=== PATIENT | male | born 1980 | race Caucasian/White ===

== ENCOUNTER 2018-01-03 19:43 | Emergency (ER) | payer OTHER ==
[~2018-01-03] VITALS: Ht 188 cm; Wt 86.2 kg
[2018-01-03 20:34] VITALS: BP 125/79
[2018-01-03] MEDS ORDERED: IBUPROFEN600 MG ORAL (20:36)
[2018-01-03] MEDS ORDERED: Ketorolac 30mg Inj ONE (20:39)
[2018-01-03] MEDS ORDERED: Ketorolac 60mg Inj IM ONE (20:45)
--- NOTE | 2018-01-06 21:13 | Emergency Room Report ---
History of Present Illness General Chief Complaint: Back Injury Source: Patient Present Illness HPI Patient 37-year-old male presented after increased low back pain. Patient the acute onset of symptoms. Patient reports having the moderate pain. This is worse with movement. Patient prior history of the low back pain in the past. Patient works at a hotel. He reports having prior workers comp injury. He had previous he required injections. Allergies: Coded Allergies: No Known Allergies (Unverified , 01/03/18) Patient History Past Medical History: see triage record Reviewed Nursing Documentation: PMH: Agreed; PSxH: Agreed Nursing Documentation-PMH Past Medical History: No History, Except For Review of Systems All Other Systems: negative except mentioned in HPI Physical Exam Vital Signs Date Time Temp Pulse Resp B/P (MAP) Pulse Ox O2 Delivery O2 Flow Rate FiO2 01/03/18 20:26 98.5 76 16 125/79 Room Air 98.4 01/03/18 20:34 98 General Appearance: well appearing, no apparent distress, alert, GCS 15 Head: normocephalic, atraumatic ENT: hearing grossly normal, normal voice Neck: full range of motion, supple Respiratory: no respiratory distress, speaking full sentences Musculoskeletal: normal inspection, back normal, decreased range of mation Neurologic: normal inspection, alert, oriented x3, responsive, parts puller III-XII nml as tested, motor strength/tone normal, normal gait Psychiatric: normal inspection, mood/affect normal Skin: no rash Medical Decision Making Diagnostic Impression: Primary Impression: Lumbar strain ER Course patient is a for low back pain. Differential diagnosis included but was not limited to herniated disc, cauda equina syndrome, abdominal aortic aneurysm, perforated ulcer, spinal epidural abscess, spinal stenosis, lumbar fracture, metastatic lesion, pyelonephritis. Patient has a benign exam and does not appear to require any further imaging or laboratory testing at this time. The patient presented having a lumbar strain. The patient appears to be neurologically intact. Patient was placed on light duty. He is advised to follow up with workers comp physician for reexamination. Last Vital Signs Date Time Temp Pulse Resp B/P (MAP) Pulse Ox O2 Delivery O2 Flow Rate FiO2 01/03/18 20:50 98.5 76 16 125/79 98 Room Air 209.3 Status: improved Disposition: HOME, SELF-CARE Condition: Stable Scripts Ibuprofen* (MOTRIN*) 600 Mg Tablet 600 MG ORAL Q8H PRN for For Pain, #30 TAB 0 Refills Prov: Cody Pablo MD 01/03/18 Referrals: NON PHYSICIAN (PCP) Patient Instructions: Back Pain, Adult Cody Pablo MD Jan 06, 2018 21:13
== END 2018-01-03 20:46 | disposition home or self-care (01) ==
LOC: EMR 20:46
DX: S39.012A Strain of muscle, fascia and tendon of lower back, initial encounter (principal); X50.9XXA Other and unspecified overexertion or strenuous movements or postures, initial encounter; Y92.59 Other trade areas as the place of occurrence of the external cause; Y99.0 Civilian activity done for income or pay
CPT/HCPCS: 96372; 99283; J1885

== ENCOUNTER 2018-01-08 13:09 | Emergency (ER) | payer OTHER ==
[~2018-01-08] VITALS: Ht 188 cm; Wt 86.2 kg
[~2018-01-08 13:09] MED LIST: IBUPROFEN600 MG ORAL
[2018-01-08 13:11] VITALS: BP 132/76
--- NOTE | 2018-01-08 13:32 | Emergency Room Report ---
History of Present Illness General Chief Complaint: Back Pain-No Injury Source: Patient Present Illness HPI Patient is a 37-year-old male who presents today with complaints of low back pain that began on 01/03/2018. Patient states he is at work lifting heavy luggage when he felt a twinge in his lower back. He states he has chronic back pain and this feels like an exacerbation of his usual back pain. He states pain is currently 5 out of 10 in severity and it is in severity at its worst. He's been taking ibuprofen with relief. He is in today requesting a note for work. Denies any changes in bowel or bladder habits, numbness, tingling, loss of vision or saddle anesthesia. Allergies: Coded Allergies: No Known Allergies (Unverified , 01/03/18) Patient History Reviewed Nursing Documentation: PMH: Agreed; PSxH: Agreed Nursing Documentation-PM Past Medical History: No Stated History History Of Psychiatric Problem: No - hx of alcohol abuse Review of Systems Musculoskeletal: Reports: back pain All Other Systems: negative except mentioned in HPI Physical Exam Vital Signs Date Time Temp Pulse Resp B/P (MAP) Pulse Ox O2 Delivery O2 Flow Rate FiO2 01/08/18 13:11 98.2 84 16 132/76 96 Room Air 98.2 Sp02 EP Interpretation: reviewed, normal General Appearance: no apparent distress, alert, GCS 15, non-toxic Head: normocephalic, atraumatic Eyes: bilateral eye normal inspection, bilateral eye PERRL ENT: hearing grossly normal, normal pharynx, no angioedema, normal voice Neck: full range of motion, supple/symm/no masses Respiratory: chest non-tender, lungs clear, normal breath sounds, speaking full sentences Cardiovascular #1: regular rate, rhythm, no edema Cardiovascular #2: 2+ carotid (R), 2+ carotid (L), 2+ radial (R), 2+ radial (L) , 2+ dorsalis pedis (R), 2+ dorsalis pedis (L) Gastrointestinal: normal bowel sounds, non tender, soft, non-distended, no guarding, no rebound Rectal: deferred Genitourinary: normal inspection, no CVA tenderness Musculoskeletal: gait/station normal, normal range of motion, non-tender, calf tenderness, other - no midline tenderness, tenderness palpation over the paraspinous muscles on the left lower back Neurologic: alert, oriented x3, responsive, motor strength/tone normal, sensory intact, speech normal, other - 5 out of 5 strength in bilateral lower extremities, positive straight leg raise on the left, pulses are present and equal bilaterally, neurovascularly intact Psychiatric: judgement/insight normal, memory normal, mood/affect normal, no suicidal/homicidal ideation Reflexes: 3+ bicep (R), 3+ bicep (L), 3+ tricep (R), 3+ tricep (L), 3+ knee (R) , 3+ knee (L) Skin: normal color, no rash, warm/dry, well hydrated Lymphatic: no adenopathy Medical Decision Making PA Attestation Supervising physician is Dr. Estrada Diagnostic Impression: Primary Impression: Lumbago ER Course Findings consistent with lumbago. Imaging is considered benign indicated at this time as patient has no tenderness to palpation of the bony processes and no injuries. Patient refused medication as he states he is a recovering alcoholic and wants to continue with ibuprofen. No evidence of cauda equina, neuro examination is normal. Patient is given return precautions and instructed to follow up with PCP for reevaluation. Patient is transplanted and is agreeable. Last Vital Signs Date Time Temp Pulse Resp B/P (MAP) Pulse Ox O2 Delivery O2 Flow Rate FiO2 01/08/18 13:11 98.4 84 16 132/76 96 Room Air 98.4 Status: improved Disposition: HOME, SELF-CARE Condition: Stable Departure Forms: Return to Work Return to Work in (Days): 2 Work Restrictions: No Heavy Lifting Patient Instructions: Back Pain, Adult Linsey Vega Jan 08, 2018 13:31
[2018-01-08 13:37] VITALS: BP 132/76
== END 2018-01-08 13:37 | disposition home or self-care (01) ==
LOC: EMR 13:20
DX: M54.5 Low back pain (principal)
CPT/HCPCS: 99282

== ENCOUNTER 2018-01-20 13:25 | Emergency (ER) | payer OTHER ==
[~2018-01-20] VITALS: Ht 188 cm; Wt 81.6 kg
[2018-01-20] MEDS ORDERED: NKM (14:24)
[2018-01-20 14:28] VITALS: BP 130/81
--- NOTE | 2018-01-20 15:08 | Emergency Room Report ---
History of Present Illness General Chief Complaint: Back Pain-No Injury Source: Patient Present Illness HPI Mr. Wright is a very pleasant 37-year-old male with history of lumbar degenerative disc disease status post surgery in 2010. Due to the pain is recently received epidural injection 6 months ago arranged by his PCP at [facility]. 2 weeks ago he was evaluated in our ER for back injury. He injured his back while lifting heavy luggage. His [facility] PCP prescribed prednisone one a week and a half ago case prednisone. Uses ibuprofen for the pain. He is able to deal with the pain. He has constant lower achy back pain radiating to left leg. Denies bowel or urine incontinence. He came for follow-up as instructed by workman compensation, case supervisor. He desires referral to orthopedic surgeon. Allergies: Coded Allergies: No Known Allergies (Unverified , 01/03/18) Patient History Past Medical History: see triage record Social History: Denies: alcohol use - former alcohol user Reviewed Nursing Documentation: PMH: Agreed; PSxH: Agreed Nursing Documentation-PM Past Medical History: No History, Except For Review of Systems Constitutional: Denies: fever, malaise Cardiovascular: Denies: chest pain Gastrointestinal: Denies: abdominal pain Musculoskeletal: Denies: back pain Psychiatric: Denies: prior hx Neurological: Denies: headache Physical Exam Vital Signs Date Time Temp Pulse Resp B/P (MAP) Pulse Ox O2 Delivery O2 Flow Rate FiO2 01/20/18 13:31 97.9 62 17 130/81 97 Room Air Sp02 EP Interpretation: reviewed, normal General Appearance: no apparent distress, alert, GCS 15, non-toxic, other - smiling, pleasant, sitting comfortable with legs crossed at the ankle Head: normocephalic, atraumatic Eyes: bilateral eye normal inspection ENT: hearing grossly normal, normal pharynx, no angioedema, normal voice Neck: full range of motion, supple/symm/no masses Respiratory: chest non-tender, lungs clear, normal breath sounds, speaking full sentences Cardiovascular #1: regular rate, rhythm, no edema, no gallop, no JVD Gastrointestinal: normal bowel sounds, non tender, soft, non-distended, no guarding, no rebound Genitourinary: normal inspection, no CVA tenderness, no vertebral tenderness Musculoskeletal: back normal, gait/station normal, normal range of motion, non- tender, calf tenderness Neurologic: alert, oriented x3, responsive, motor strength/tone normal, sensory intact, normal gait, speech normal, grossly normal Psychiatric: judgement/insight normal, memory normal, mood/affect normal, no suicidal/homicidal ideation Skin: normal color, no rash, warm/dry, well hydrated Medical Decision Making Diagnostic Impression: Primary Impression: Back pain Additional Impression: Work related injury ER Course Mr. Wright has new back pain after lifting heavy luggage on his job 2 weeks ago. Requests referral to orthopedic surgeon. Has been managed by his PCP at [facility]. Given referral to orthopedic surgeon consumer services consultant. INtact strength. Patient appears comfortable. No signs of cauda equina or cord compression on exam. Last Vital Signs Date Time Temp Pulse Resp B/P (MAP) Pulse Ox O2 Delivery O2 Flow Rate FiO2 01/20/18 14:28 97.9 17 130/81 97 Room Air 01/20/18 13:31 62 Disposition: HOME, SELF-CARE Condition: Stable Suly Brothers MD Jan 20, 2018 15:08
[2018-01-20 15:31] VITALS: BP 127/78
== END 2018-01-20 15:32 | disposition home or self-care (01) ==
LOC: EMR 15:02
DX: M54.5 Low back pain (principal); S39.92XD Unspecified injury of lower back, subsequent encounter; X50.0XXD Overexertion from strenuous movement or load, subsequent encounter
CPT/HCPCS: 99282